=== PATIENT | male | born 1990 | race Caucasian/White ===

== ENCOUNTER 2017-03-07 07:19 | Emergency (ER) | payer BC ==
[~2017-03-07] VITALS: Ht 172.7 cm; Wt 72.9 kg
[~2017-03-07 07:19] MED LIST: COMBAER INH; LEVA750T PO; LORT5TAB PO
[2017-03-07 07:22] VITALS: BP 104/69; PULSE 69; RESP 16; TEMP 97.6; O2SAT 97
--- NOTE | 2017-03-07 07:31 | PD ---
HPI Chief Complaint: Injury Time Seen by Provider: 07:26 Travel History International Travel<30 days: No Contact w/Intl Traveler<30days: No Traveled to known affect area: No History of Present Illness HPI This is a 26-year-old male who presents to the emergency department having injured his left ankle. He was playing basketball last evening when he inverted his left ankle. Ever since then he's had moderate severity pain in his left ankle, constant, associated with some swelling but no numbness or weakness. He denies any other injuries. PFSH Past Medical History Arthritis: No Asthma: No Autoimmune Disease: No Heart Rhythm Problems: No Cancer: No Cardiovascular Problems: No High Cholesterol: No Chemotherapy: No Chest Pain: No Congestive Heart Failure: No COPD: No Cerebrovascular Accident: No Cystic Fibrosis: No Diabetes: No Diminished Hearing: No Endocrine: No GERD: No Genitourinary: No Hiatal Hernia: No Immune Disorder: No Kidney Stones: No Musculoskeletal: No Neurologic: No Psychiatric: No Respiratory: No Migraines: No Radiation Therapy: No Renal Failure: No Seizures: No Sickle Cell Disease: No Sleep Apnea: No Thyroid Disease: No Ulcer: No Past Surgical History AICD: No Arteriovenous Shunt: No Ear Surgery: No Endocrine Surgery: No Eye Surgery: No Insulin Pump: No Joint Replacement: No Oral Surgery: No Pacemaker: No Social History Alcohol Use: Yes (OCCAS. BEER) Tobacco Use: No Substance Use: No Allergies-Medications (Allergen,Severity, Reaction): Coded Allergies: No Known Allergies (Verified , 03/07/17) Reported Meds & Prescriptions Reported Meds & Active Scripts Active No Active Prescriptions or Reported Medications Review of Systems Except as stated in HPI: all other systems reviewed are Neg Physical Exam Narrative GENERAL:Well appearing, no acute distress SKIN: Focused skin assessment warm and dry. HEAD: Atraumatic. Normocephalic. EYES: Pupils equal and round. No injection or drainage. ENT: Moist mucous membranes NECK: Trachea midline. CARDIOVASCULAR: Regular rate and rhythm. No murmur appreciated. 2+ DP pulse with normal capillary refill in the left foot. RESPIRATORY: Clear to auscultation. Breath sounds equal bilaterally. GASTROINTESTINAL: Abdomen soft, non-tender, nondistended. MUSCULOSKELETAL: Tender to palpation over the posterior lateral malleolus of the left ankle with swelling over the anterior and lateral aspect of the ankle. No focal tenderness in the foot. NEUROLOGICAL: Awake and alert. No obvious cranial nerve deficits. Moving all extremities. PSYCHIATRIC: Appropriate mood and affect; insight and judgment normal. Data Data Last Documented VS Vital Signs Date Time Temp Pulse Resp B/P Pulse Ox O2 Delivery O2 Flow Rate FiO2 03/07/17 07:22 97.6 69 16 104/69 97 Orders Ankle, Complete ([id number]) (03/07/17 ) [facility] Medical Decision Making Medical Screen Exam Complete: Yes Emergency Medical Condition: Yes Interpretation(s) Afebrile, no tachycardia, normotensive Left ankle: No acute fracture Differential Diagnosis Medial malleolus fracture, lateral malleolus fracture, ankle sprain Narrative Course This is a 26-year-old male who presents to the emergency department having injured his left ankle. He has swelling on exam with a normal neurovascular exam. He has no evidence of acute fracture on x-ray. He was advised to rest, ice, compress and elevate the ankle. He was given orthopedic referral as needed. Diagnosis Primary Impression: Left ankle sprain Qualified Code: S93.402A - Sprain of left ankle, unspecified ligament, initial encounter Referrals: Luis Romeo MD as needed Patient Instructions: General Instructions Departure Forms: Tests/Procedures, Work Release Special Instructions: Please place Mr. Abdullahi on light duty until Monday when he can resume full work Additional Instructions: If you develop severe pain in the foot or ankle, numbness, weakness, or coolness of your foot return to the emergency department immediately. - Use crutches as needed and rest your ankle until your pain improves. - Apply ice to your ankle for 20 minutes every 3 hours for the first 2 days. - Use an nicole wrap to minimize swelling. - Keep your ankle elevated when you are resting. - Use ibuprofen as needed for pain. - Gradually start exercises with your ankle, moving it upward, downward and in small circles. Perform 20 clockwise and 20 counterclockwise circles twice daily. Med/Other Pt SpecificInfo: Prescription(s) given Scripts No Active Prescriptions or Reported Meds Disposition: DISCHARGE HOME Condition: Stable Karyn Dolan MD March 07, 2017 07:31
--- NOTE | 2017-03-07 08:12 | RADHPO ---
EXAM DATE/TIME: 03/07/2017 07:53 [facility] COMPARISON: No previous studies available for comparison. INDICATIONS : Left lateral ankle pain and swelling, twisted ankle last night playing basketball. MEDICAL HISTORY : None. SURGICAL HISTORY : None. ENCOUNTER: Initial ACUITY: 2 days PAIN SCORE: 8/10 LOCATION: Left lateral ankle FINDINGS: Three view exam was performed of the left ankle. The bony structures are in normal alignment. No ev idence of fracture, dislocation. There is soft tissue swelling. The ankle mortise is intact. No rad iopaque foreign bodies are seen. Bony mineralization is normal. CONCLUSION: No acute fracture. Asa Fregoso MD on March 07, 2017 at 8:09 Board Certified Radiologist. This report was verified electronically.
== END 2017-03-07 08:57 | disposition home or self-care (01) ==
LOC: PHED 07:19
DX: S93.402A Sprain of unspecified ligament of left ankle, initial encounter (principal); X50.1XXA Overexertion from prolonged static or awkward postures, initial encounter; Y93.67 Activity, basketball
CPT/HCPCS: 73610; 99283; E0113

== ENCOUNTER 2017-09-16 13:05 | Emergency (ER) | payer BC ==
[2017-09-16 13:12] VITALS: BP 129/76; PULSE 74; RESP 20; TEMP 98.1; O2SAT 98
[2017-09-16] MEDS ORDERED: SODIUM CHLORIDE 0.9% FLUSH 10 ML FLUSH IV FLUSH PRN (13:30)
--- NOTE | 2017-09-16 13:34 | PD ---
HPI Chief Complaint: Abdominal Pain Time Seen by Provider: 13:21 Travel History International Travel<30 days: No Contact w/Intl Traveler<30days: No Traveled to known affect area: No History of Present Illness HPI patient is a 27-year-old otherwise healthy male presents emergency Department with right lower quadrant abdominal pain radiating down to his testicles. Patient states been going on for about a week and thinks that he might just have a groin pull is worried about having a hernia or something more severe. The only thing he can think of that might about this pain on his 6 months ago he was lifting something heavy when he felt the same pain come on. He states it resolved very quickly and never came back. Denies any dysuria or hematuria endorses some mild nausea without vomiting no changes in stool habits. He states his symptoms are moderate to severe, location as above, radiation as above, context as above. PFSH Past Medical History Arthritis: No Asthma: No Autoimmune Disease: No Heart Rhythm Problems: No Cancer: No Cardiovascular Problems: No High Cholesterol: No Chemotherapy: No Chest Pain: No Congestive Heart Failure: No COPD: No Cerebrovascular Accident: No Cystic Fibrosis: No Diabetes: No Diminished Hearing: No Endocrine: No Gastrointestinal Disorders: No GERD: No Genitourinary: No Headaches: No Hiatal Hernia: No Heparin Induced Thrombocytopen: No Hypertension: No Immune Disorder: No Implanted Vascular Access Dvce: No Kidney Stones: No Musculoskeletal: No Neurologic: No Psychiatric: No Respiratory: No Migraines: No Radiation Therapy: No Renal Failure: No Seizures: No Sickle Cell Disease: No Sleep Apnea: No Thyroid Disease: No Ulcer: No Past Surgical History AICD: No Arteriovenous Shunt: No Ear Surgery: No Endocrine Surgery: No Eye Surgery: No Insulin Pump: No Joint Replacement: No Oral Surgery: No Pacemaker: No Other Surgery: No Social History Alcohol Use: Yes (OCCAS. BEER) Tobacco Use: No Substance Use: No Allergies-Medications (Allergen,Severity, Reaction): Coded Allergies: No Known Allergies (Verified Adverse Reaction, Unknown, 09/16/17) Reported Meds & Prescriptions Reported Meds & Active Scripts Active No Active Prescriptions or Reported Medications Review of Systems Except as stated in HPI: all other systems reviewed are Neg Physical Exam Narrative GENERAL: Well-developed well-nourished no obvious distress SKIN: Focused skin assessment warm/dry. HEAD: Atraumatic. Normocephalic. EYES: Pupils equal and round. No scleral icterus. No injection or drainage. ENT: No nasal bleeding or discharge. Mucous membranes pink and moist. NECK: Trachea midline. No JVD. CARDIOVASCULAR: Regular rate and rhythm. No murmur appreciated. RESPIRATORY: No accessory muscle use. Clear to auscultation. Breath sounds equal bilaterally. GASTROINTESTINAL: Abdomen soft, minimally tender in the right lower quadrant, nondistended. Hepatic and splenic margins not palpable. GENITOURINARY: Grossly normal external genitalia, circumcised, there is some minimal tenderness of the right testes, no masses no lesions. Perhaps a small inguinal hernia felt on the right. None on the left. MUSCULOSKELETAL: No obvious deformities. No clubbing. No cyanosis. No edema. NEUROLOGICAL: Awake and alert. No obvious cranial nerve deficits. Motor grossly within normal limits. Normal speech. PSYCHIATRIC: Appropriate mood and affect; insight and judgment normal. Data Data Last Documented VS Vital Signs Date Time Temp Pulse Resp B/P (MAP) Pulse Ox O2 Delivery O2 Flow Rate FiO2 09/16/17 13:12 98.1 74 20 129/76 (93) 98 Orders Orders Basic Metabolic Panel (Bmp) (09/16/17 13:30) Complete Blood Count With Diff (09/16/17 13:30) Urinalysis - C+S If Indicated (09/16/17 13:30) Iv Access Insert/Monitor (09/16/17 13:30) Ecg Monitoring (09/16/17 13:30) Oximetry (09/16/17 13:30) Sodium Chloride 0.9% Flush (Ns Flush) (09/16/17 13:30) Us Testicles W Doppler (09/16/17 13:30) Ed Discharge Order (09/16/17 14:31) Labs Laboratory Tests Test 09/16/17 13:48 White Blood Count 6.9 TH/MM3 Red Blood Count 5.24 MIL/MM3 Hemoglobin 16.4 GM/DL Hematocrit 47.6 % Mean Corpuscular Volume 90.8 FL Mean Corpuscular Hemoglobin 31.4 PG Mean Corpuscular Hemoglobin Concent 34.5 % Red Cell Distribution Width 12.5 % Platelet Count 199 TH/MM3 Mean Platelet Volume 8.3 FL Neutrophils (%) (Auto) 54.4 % Lymphocytes (%) (Auto) 35.0 % Monocytes (%) (Auto) 5.0 % Eosinophils (%) (Auto) 3.2 % Basophils (%) (Auto) 2.4 % Neutrophils # (Auto) 3.8 TH/MM3 Lymphocytes # (Auto) 2.4 TH/MM3 Monocytes # (Auto) 0.3 TH/MM3 Eosinophils # (Auto) 0.2 TH/MM3 Basophils # (Auto) 0.2 TH/MM3 CBC Comment DIFF FINAL Differential Comment Urine Collection Type VOIDED Urine Color STRAW Urine Turbidity CLEAR Urine pH 7.5 Urine Specific [place] 1.012 Urine Protein NEG mg/dL Urine Glucose (UA) NEG mg/dL Urine Ketones NEG mg/dL Urine Occult Blood NEG Urine Nitrite NEG Urine Bilirubin NEG Urine Leukocyte Esterase NEG Urine Squamous Epithelial Cells 0-2 /hpf Microscopic Urinalysis Comment CULT NOT INDICATED Blood Urea Nitrogen 15 MG/DL Creatinine 0.98 MG/DL Random Glucose 108 MG/DL Calcium Level 9.0 MG/DL Sodium Level 140 MEQ/L Potassium Level 4.2 MEQ/L Chloride Level 107 MEQ/L Carbon Dioxide Level 25.6 MEQ/L Anion Gap 7 MEQ/L Estimat Glomerular Filtration Rate 90 ML/MIN [facility] Medical Decision Making Medical Screen Exam Complete: Yes Emergency Medical Condition: Yes Differential Diagnosis Hernia, testicular pain, appendicitis is unlikely, torsion unlikely, epididymitis. Narrative Course Patient roomed emergency department, appears quite comfortable in no distress, exam is fairly benign. Ultrasound of the testes is negative, basic labs negative. Discussed with him that he could consider following up with a primary care physician when he states he doesn't have one and I suggested that he could have a CAT scan here to look for any significant pathology, he is declining this offer at this time. This would be done on a nonemergent basis anyways. Discussed with him symptomatic management returned ED criteria. He will follow-up the primary care physician. Stable for discharge.He was offered pain medicine and declined Diagnosis Primary Impression: Right groin pain Additional Impression: Hernia, inguinal, right Referrals: Narendra Mitchell MD [facility] No Active Prescriptions or Reported Meds Disposition: 01 DISCHARGE HOME Condition: Stable Salbador Delgadillo MD Sep 16, 2017 13:34
[2017-09-16 13:57] LABS: AUTOMATED NEUTROPHIL # 3.8 TH/MM3 (1.8-7.7); BASOPHIL # 0.2 TH/MM3 (0-0.2); BASOPHIL % 2.4 % (0.0-2.0); EOSINOPHIL # 0.2 TH/MM3 (0-0.4); EOSINOPHIL % 3.2 % (0.0-4.0); HEMATOCRIT 47.6 % (39.0-51.0); HEMO FLAGS DIFF FINAL; LYMPHOCYTE # 2.4 TH/MM3 (1.0-4.8); MEAN CELL VOLUME 90.8 FL (80.0-100.0); MEAN CORPUSCULAR HEMOGLOBIN 31.4 PG (27.0-34.0); MEAN CORPUSCULAR HGB CONC 34.5 % (32.0-36.0); NEUT % 54.4 % (16.0-70.0); PLATELET COUNT 199 TH/MM3 (150-450); RED BLOOD COUNT 5.24 MIL/MM3 (4.50-5.90); RED CELL DISTRIBUTION WIDTH 12.5 % (11.6-17.2); WHITE BLOOD COUNT 6.9 TH/MM3 (4.0-11.0)
[2017-09-16 13:58] LABS: BLOOD, URINE NEG (NEG); GLUCOSE,URINE NEG (NEG); KETONE, URINE NEG (NEG); NITRITE,URINE NEG (NEG); PH, URINE 7.5 (5.0-8.5)
[2017-09-16 14:16] LABS: BICARBONATE 25.6 MEQ/L (21.0-32.0)
[2017-09-16 14:19] LABS: METHOD OF COLLECTION VOIDED; POTASSIUM 4.2 MEQ/L (3.5-5.1); URINE COLOR STRAW (YELLW/STRAW)
[2017-09-16 14:20] LABS: COMMENT (UR) CULT NOT INDICATED; CULTURE IF INDICATED CULT NOT INDICATED; SQUAMOUS EPITHELIAL CELL URINE 0-2 /hpf (0-5)
--- NOTE | 2017-09-16 14:24 | RADRPT ---
EXAM DATE/TIME: 09/16/2017 13:44 [facility] COMPARISON: No previous studies available for comparison. INDICATIONS : Testicular pain. MEDICAL HISTORY : Dyspnea. Alcohol use. Broken tooth. SURGICAL HISTORY : None. ENCOUNTER: Initial ACUITY: 1 week PAIN SCORE: 3/10 LOCATION: Bilateral testicles. MEASUREMENTS: RIGHT TESTICLE: 4.7 x 2.9 x 2.5cm LEFT TESTICLE: 4.7 x 2.4 x 2.1cm FINDINGS: RIGHT TESTICLE: Homogeneous echotexture without intra or extratesticular mass. Blood flow is symmetric and within no rmal limits. Small hydrocele. No varicocele. Epididymis is within normal limits. LEFT TESTICLE: Homogeneous echotexture without intra or extratesticular mass. Blood flow is symmetric and within no rmal limits. Small hydrocele. No varicocele. Epididymis is within normal limits. SCROTUM: Within normal limits. CONCLUSION: 1. Small bilateral hydroceles. Otherwise, unremarkable ultrasound examination of the testicles. Specifically, no focal testicular ab normality with intact symmetrical bilateral testicular blood flow. Dereck Cat MD on September 16, 2017 at 14:21 Board Certified Radiologist. This report was verified electronically.
== END 2017-09-16 14:44 | disposition home or self-care (01) ==
LOC: PHED 13:05
DX: K40.90 Unilateral inguinal hernia, without obstruction or gangrene, not specified as recurrent (principal)
CPT/HCPCS: 76870; 80048; 81001; 85025; 93975

== ENCOUNTER 2018-02-27 22:16 | Emergency (ER) | payer SELFPAY ==
[~2018-02-27] VITALS: Ht 172.7 cm; Wt 77.2 kg
[2018-02-27] MEDS ORDERED: IBUP-232 PO (22:22)
[2018-02-27] MEDS ORDERED: CEPH-460 PO (22:22)
[2018-02-27 22:23] VITALS: BP 141/75; PULSE 100; RESP 16; TEMP 99; O2SAT 97
[2018-02-27] MEDS ORDERED: SODIUM CHLOR 0.9% 1000 ML INJ 1,000 ML IV ONE ×2 (23:00)
--- NOTE | 2018-02-27 23:21 | PD ---
HPI Chief Complaint: Headache Time Seen by Provider: 23:00 Travel History International Travel<30 days: No Contact w/Intl Traveler<30days: No Traveled to known affect area: No History of Present Illness HPI 27-year-old male presents to the emergency department by private transportation for complaint of right groin pain since Monday. Patient states onset of right groin pain occurred while at work undergoing heavy lifting. Patient was sent to urgent care for possible work-related hernia. At urgent care patient was diagnosed with infected lymph node of the right groin. Patient was placed on Keflex. Patient states that the right groin mass has not diminished in size and subsequently on Monday developed headache and on Monday was noted to have fever. Patient states he took a one-time dose of ibuprofen on Monday morning for fever and then this evening had temperature elevation of 101F so took a shower and came to the emergency room for evaluation. Patient denies any sudden onset thunderclap headache patient does state headache is severe at 8/10 intensity but is intermittent and primarily with ambulation. Patient rates groin pain 6-8/10 in intensity. Patient's had no dysuria frequency urgency or discharge. Patient denies any earache sore throat neck pain or stiffness. No cough congestion no nausea no vomiting. No report of anorexia. No flank pain. Patient denies diarrhea. [facility] Past Medical History Narrative Medical Negative past medical history negative surgical history; nursing notes reviewed Arthritis: No Asthma: No Autoimmune Disease: No Heart Rhythm Problems: No Cancer: No Cardiovascular Problems: No High Cholesterol: No Chemotherapy: No Chest Pain: No Congestive Heart Failure: No COPD: No Cerebrovascular Accident: No Cystic Fibrosis: No Diabetes: No Diminished Hearing: No Endocrine: No Gastrointestinal Disorders: No GERD: No Genitourinary: No Headaches: No Hiatal Hernia: No Heparin Induced Thrombocytopen: No Hypertension: No Immune Disorder: No Implanted Vascular Access Dvce: No Kidney Stones: No Musculoskeletal: No Neurologic: No Psychiatric: No Respiratory: No Immunizations Current: Yes Migraines: No Radiation Therapy: No Renal Failure: No Seizures: No Sickle Cell Disease: No Sleep Apnea: No Thyroid Disease: No Ulcer: No Tetanus Vaccination: Unknown Past Surgical History AICD: No Arteriovenous Shunt: No Ear Surgery: No Endocrine Surgery: No Eye Surgery: No Insulin Pump: No Joint Replacement: No Oral Surgery: No Pacemaker: No Other Surgery: No Social History Alcohol Use: Yes (OCCAS. BEER) Tobacco Use: No Substance Use: No Allergies-Medications (Allergen,Severity, Reaction): Coded Allergies: No Known Allergies (Verified Adverse Reaction, Unknown, 02/27/18) Reported Meds & Prescriptions Reported Meds & Active Scripts Active Clindamycin (Clindamycin HCl) 150 Mg Cap 300 Mg PO Q6H 7 Days Reported Ibuprofen 600 Mg Tab 600 Mg PO Q6H PRN Keflex (Cephalexin) 500 Mg Capsule 500 Mg PO Q8H Review of Systems Except as stated in HPI: all other systems reviewed are Neg General / Constitutional: Positive: Fever, No: Chills HENT: Positive: Headaches, No: Sore Throat, Congestion, Neck Stiffness, Neck Pain, Earache Cardiovascular: No: Chest Pain or Discomfort Respiratory: No: Cough, Shortness of Breath Gastrointestinal: Positive: Abdominal Pain (RLQ right groin), No: Nausea, Vomiting, Loss of Appetite Genitourinary: No: Dysuria, Flank Pain, Discharge Musculoskeletal: No: Myalgias, Arthralgias Skin: No Rash Neurologic: Positive: Headache, No: Weakness, Dizziness, Syncope, Focal Abnormalities, Coordination Problem, Change in Mentation Psychiatric: No: Anxiety Hematologic/Lymphatic: Positive: Lymph Node Enlargement (right groin) Physical Exam Narrative GENERAL: Well-developed well-nourished male no acute distress no respiratory distress SKIN: Warm and dry. HEAD: Normocephalic. EYES: No scleral icterus. No injection or drainage. NECK: Supple, trachea midline. No JVD or lymphadenopathy. No meningismus no nuchal rigidity negative Brudzinski and Kernig's CARDIOVASCULAR: Regular rate and rhythm without murmurs, gallops, or rubs. RESPIRATORY: Breath sounds equal bilaterally. No accessory muscle use. GASTROINTESTINAL: Abdomen soft, tender right lower abdomen/groin with palpable right groin lymphadenopathy focal mild erythema no inguinal hernia or mass, nondistended. MUSCULOSKELETAL: No cyanosis, or edema. BACK: Nontender without obvious deformity. No CVA tenderness. Data Data Last Documented VS Vital Signs Date Time Temp Pulse Resp B/P (MAP) Pulse Ox O2 Delivery O2 Flow Rate FiO2 02/28/18 03:27 98.0 70 20 106/56 (73) 97 02/28/18 01:58 Room Air Orders Orders Sepsis Workup Initiated (5/15/18 ) Complete Blood Count With Diff (02/27/18 23:00) Comprehensive Metabolic Panel (02/27/18 23:00) Lactic Acid Sepsis Protocol (02/27/18 23:00) Urinalysis - C+S If Indicated (02/27/18 23:00) Influenzae A/B Antigen (02/27/18 23:00) Blood Culture (02/27/18 23:00) Chest, Single Ap (02/27/18 23:00) Blood Glucose (02/27/18 23:00) Ecg Monitoring (02/27/18 23:00) Iv Access Insert/Monitor (02/27/18 23:00) Oximetry (02/27/18 23:00) Oxygen Administration (02/27/18 23:00) Sodium Chlor 0.9% 1000 Ml Inj (Ns 1000 M (02/27/18 23:00) Sodium Chlor 0.9% 1000 Ml Inj (Ns 1000 M (02/27/18 23:00) Ketorolac Inj (Toradol Inj) (02/27/18 23:30) Acetaminophen (Tylenol) (02/27/18 23:30) Sodium Chlor 0.9% 1000 Ml Inj (Ns 1000 M (02/28/18 01:15) Prochlorperazine Inj (Compazine Inj) (02/28/18 01:15) Diphenhydramine Inj (Benadryl Inj) (02/28/18 01:15) Ct Brain W/O Iv Contrast(Rout) (02/28/18 ) Ct Abd/Pel W Iv Contrast(Rout) (02/28/18 ) Iohexol 350 Inj (Omnipaque 350 Inj) (02/28/18 03:01) Clindamycin (Cleocin) (02/28/18 04:15) Ed Discharge Order (02/28/18 04:06) Labs Laboratory Tests Test 02/27/18 23:11 02/28/18 00:50 White Blood Count 9.6 TH/MM3 Red Blood Count 4.88 MIL/MM3 Hemoglobin 14.8 GM/DL Hematocrit 44.3 % Mean Corpuscular Volume 90.9 FL Mean Corpuscular Hemoglobin 30.2 PG Mean Corpuscular Hemoglobin Concent 33.3 % Red Cell Distribution Width 11.5 % Platelet Count 227 TH/MM3 Mean Platelet Volume 7.9 FL Neutrophils (%) (Auto) 67.7 % Lymphocytes (%) (Auto) 24.0 % Monocytes (%) (Auto) 5.3 % Eosinophils (%) (Auto) 2.6 % Basophils (%) (Auto) 0.4 % Neutrophils # (Auto) 6.6 TH/MM3 Lymphocytes # (Auto) 2.3 TH/MM3 Monocytes # (Auto) 0.5 TH/MM3 Eosinophils # (Auto) 0.2 TH/MM3 Basophils # (Auto) 0.0 TH/MM3 CBC Comment DIFF FINAL Differential Comment Blood Urea Nitrogen 14 MG/DL Creatinine 1.30 MG/DL Random Glucose 127 MG/DL Total Protein 7.2 GM/DL Albumin 3.8 GM/DL Calcium Level 8.6 MG/DL Alkaline Phosphatase 74 U/L Aspartate Amino Transf (AST/SGOT) 13 U/L Alanine Aminotransferase (ALT/SGPT) 19 U/L Total Bilirubin 0.4 MG/DL Sodium Level 140 MEQ/L Potassium Level 3.3 MEQ/L Chloride Level 107 MEQ/L Carbon Dioxide Level 25.2 MEQ/L Anion Gap 8 MEQ/L Estimat Glomerular Filtration Rate 65 ML/MIN Lactic Acid Level 1.5 mmol/L Urine Color YELLOW Urine Turbidity CLEAR Urine pH 6.0 Urine Specific [place] 1.010 Urine Protein NEG mg/dL Urine Glucose (UA) NEG mg/dL Urine Ketones NEG mg/dL Urine Occult Blood NEG Urine Nitrite NEG Urine Bilirubin NEG Urine Urobilinogen 0.2 MG/DL Urine Leukocyte Esterase NEG Urine Squamous Epithelial Cells 0-5 /hpf Microscopic Urinalysis Comment CULT NOT INDICATED MDM Medical Decision Making Medical Screen Exam Complete: Yes Emergency Medical Condition: Yes Medical Record Reviewed: Yes Interpretation(s) CBC & BMP Diagram 02/27/18 23:11 Total Protein 7.2, Albumin 3.8, Calcium Level 8.6, Alkaline Phosphatase 74, Aspartate Amino Transf (AST/SGOT) 13 L, Alanine Aminotransferase (ALT/SGPT) 19, Total Bilirubin 0.4 Vital Signs Date Time Temp Pulse Resp B/P (MAP) Pulse Ox O2 Delivery O2 Flow Rate FiO2 02/28/18 02:00 68 20 100/50 (67) 98 02/28/18 01:58 98.1 86 20 100/50 (67) 96 Room Air 02/28/18 01:58 96 Room Air 02/27/18 22:39 20 02/27/18 22:23 99.0 100 16 141/75 (97) 97 ua: wnl influenza ag:negative Last Impressions Head CT 02/28/18 0000 Signed Impressions: Service Date/Time: Wednesday, February 28, 2018 01:59 - CONCLUSION: Normal examination. Oscar Grigsby Jr., MD Abdomen/Pelvis CT 02/28/18 0000 Signed Impressions: Service Date/Time: Wednesday, February 28, 2018 02:52 - CONCLUSION: Normal examination. Oscar Grigsby Jr., MD Chest X-Ray 02/27/18 2300 Signed Impressions: Service Date/Time: Tuesday, February 27, 2018 23:47 - CONCLUSION: No acute disease. Oscar Grigsby Jr., MD Differential Diagnosis Groin pain, infected lymph node, abscess, epididymitis, uti, viral syndrome, sinusitis; also to consider sepsis, meningitis Narrative Course At 2:30 AM patient reports symptoms markedly improved able to ambulate without any headache at this time and headache is only been intermittent over the past 5 days but continues to complain of 6/10 lower abdominal pain and groin pain; no obvious hernia on exam patient does have non-fixed tender right groin lymph nodes/lymphadenopathy; CBC is automated differential is normal lactic acid is not elevated and urinalysis reveals no white cells or bacteria however patient reports increasing right lower quadrant pain as well will proceed with CT abdomen and pelvis with IV contrast. Imaging study CT brain noncontrast is negative for acute process/findings. Imaging study resulted CT shows some prominence of lymph nodes to the right groin no abscess. Patient states feels markedly improved desirous of being discharged to home is aware of plan to add antibiotic coverage for infected lymph node/focal cellulitis. Patient remains afebrile in the emergency department and stable for outpatient management. Patient is well hydrated. Patient be discharged with outpatient follow-up through his clinic or through the emergency department in 1-2 days or sooner should he have any recurrent symptoms. Diagnosis Primary Impression: Right groin mass Additional Impression: Cellulitis Referrals: Primary Care Physician 2 days Patient Instructions: General Instructions Departure Forms: Tests/Procedures, Work Release Special Instructions: no work x 2 days Med/Other Pt SpecificInfo: Prescription(s) given Scripts Clindamycin (Clindamycin) 150 Mg Cap 300 MG PO Q6H for Infection for 7 Days, #56 CAP 0 Refills Prov: Jojo Mercado MD 02/28/18 Disposition: 01 DISCHARGE HOME Condition: Stable Jojo Mercado MD February 27, 2018 23:21
[2018-02-27 23:27] LABS: AUTOMATED NEUTROPHIL # 6.6 TH/MM3 (1.8-7.7); BASOPHIL % 0.4 % (0.0-2.0); EOSINOPHIL # 0.2 TH/MM3 (0-0.4); EOSINOPHIL % 2.6 % (0.0-4.0); HEMATOCRIT 44.3 % (39.0-51.0); HEMOGLOBIN 14.8 GM/DL (13.0-17.0); LYMPHOCYTE # 2.3 TH/MM3 (1.0-4.8); MEAN CELL VOLUME 90.9 FL (80.0-100.0); MEAN CORPUSCULAR HEMOGLOBIN 30.2 PG (27.0-34.0); MEAN CORPUSCULAR HGB CONC 33.3 % (32.0-36.0); MEAN PLATELET VOLUME 7.9 FL (7.0-11.0); MONO % 5.3 % (0.0-8.0); MONOCYTE # 0.5 TH/MM3 (0-0.9); NEUT % 67.7 % (16.0-70.0); PLATELET COUNT 227 TH/MM3 (150-450); RED BLOOD COUNT 4.88 MIL/MM3 (4.50-5.90); RED CELL DISTRIBUTION WIDTH 11.5 % (11.6-17.2); WHITE BLOOD COUNT 9.6 TH/MM3 (4.0-11.0)
[2018-02-27] MEDS ORDERED: ACETAMINOPHEN 325 MG TAB PO ONE (23:30)
[2018-02-27] MEDS ORDERED: KETOROLAC TROMETHAMINE 30 MG/ML (IVP) VIAL IV PUSH ONE (23:30)
[2018-02-27 23:40] LABS: CHLORIDE 107 MEQ/L (98-107); SODIUM (NA) 140 MEQ/L (136-145)
[2018-02-27 23:43] LABS: ALBUMIN 3.8 GM/DL (3.4-5.0); BICARBONATE 25.2 MEQ/L (21.0-32.0); BLOOD UREA NITROGEN 14 MG/DL (7-18); CALCIUM 8.6 MG/DL (8.5-10.1); GLUCOSE,RANDOM 127 MG/DL (74-106)
[2018-02-27 23:46] LABS: ALT (GPT) 19 U/L (12-78); AST (GOT) 13 U/L (15-37); GLOMERULAR FILTRATION RATE 65 ML/MIN (>89)
[2018-02-27 23:48] LABS: TOTAL BILIRUBIN ADULT 0.4 MG/DL (0.2-1.0); TOTAL PROTEIN 7.2 GM/DL (6.4-8.2)
[2018-02-27 23:49] LABS: ALKALINE PHOSPHATASE 74 U/L (45-117)
--- NOTE | 2018-02-28 00:29 | RADRPT ---
EXAM DATE/TIME: 02/27/2018 23:47 [facility] COMPARISON: No previous studies available for comparison. INDICATIONS : Fever. MEDICAL HISTORY : None. SURGICAL HISTORY : None. ENCOUNTER: Initial ACUITY: 1 day PAIN SCORE: 0/10 LOCATION: Bilateral chest FINDINGS: A single view of the chest demonstrates the lungs to be symmetrically aerated without evidence of mas s, infiltrate or effusion. The cardiomediastinal contours are unremarkable. Osseous structures are intact. CONCLUSION: No acute disease. Oscar Grigsby Jr., MD on February 28, 2018 at 0:27 Board Certified Radiologist. This report was verified electronically.
[2018-02-28 01:07] LABS: BILIRUBIN, URINE NEG (NEG); BLOOD, URINE NEG (NEG); GLUCOSE,URINE NEG (NEG); KETONE, URINE NEG (NEG); NITRITE,URINE NEG (NEG); URINE COLOR YELLOW (YELLW/STRAW); URINE LEUKOCYTE ESTERASE NEG (NEG)
[2018-02-28] MEDS ORDERED: diphenhydrAMINE HCL 50 MG/ML VIAL IV PUSH ONE (01:15)
[2018-02-28] MEDS ORDERED: SODIUM CHLOR 0.9% 1000 ML INJ 1,000 ML IV ONE (01:15)
[2018-02-28] MEDS ORDERED: PROCHLORPERAZINE INJ 10 MG/2 ML VIAL IV PUSH ONE (01:15)
[2018-02-28 01:20] LABS: SQUAMOUS EPITHELIAL CELL URINE 0-5 /hpf (0-5)
[2018-02-28 01:30] VITALS: BP 138/60; PULSE 82; RESP 20; O2SAT 97
[2018-02-28 01:58] VITALS: BP 100/50; PULSE 86; RESP 20; TEMP 98.1; O2SAT 96
[2018-02-28 02:00] VITALS: BP 100/50; PULSE 68; RESP 20; O2SAT 98
--- NOTE | 2018-02-28 02:22 | RADRPT ---
EXAM DATE/TIME: 02/28/2018 01:59 [facility] COMPARISON: No previous studies available for comparison. INDICATIONS : Cephalgia. Light sensitivity. RADIATION DOSE: 59.50 CTDIvol (mGy) MEDICAL HISTORY : None SURGICAL HISTORY : None. ENCOUNTER: Initial ACUITY: 1 day PAIN SCALE: 8/10 LOCATION: Bilateral cranial TECHNIQUE: Multiple contiguous axial images were obtained of the head. Using automated exposure control and adj ustment of the mA and/or kV according to patient size, radiation dose was kept as low as reasonably a chievable to obtain optimal diagnostic quality images. DICOM format image data is available electro nically for review and comparison. FINDINGS: CEREBRUM: The ventricles are normal for age. No evidence of midline shift, mass lesion, hemorrhage or acute in farction. No extra-axial fluid collections are seen. POSTERIOR FOSSA: The cerebellum and brainstem are intact. The 4th ventricle is midline. The cerebellopontine angle i s unremarkable. EXTRACRANIAL: The visualized portion of the orbits is intact. SKULL: The calvaria is intact. No evidence of skull fracture. CONCLUSION: Normal examination. Oscar Grigsby Jr., MD on February 28, 2018 at 2:19 Board Certified Radiologist. This report was verified electronically.
[2018-02-28] MEDS ORDERED: IOHEXOL 350 MG/ML 10 ML VIAL (for RAD DIAG) IVCONTRAST ONE (03:01)
[2018-02-28 03:27] VITALS: BP 106/56; PULSE 70; RESP 20; TEMP 98; O2SAT 97
--- NOTE | 2018-02-28 03:28 | RADRPT ---
EXAM DATE/TIME: 02/28/2018 02:52 This report includes an Addendum and supersedes previous reports for this exam. [facility] COMPARISON: No previous studies available for comparison. INDICATIONS : Right lower quadrant pain. IV CONTRAST: 100 cc Omnipaque 350 (iohexol) IV ORAL CONTRAST: No oral contrast ingested. RADIATION DOSE: 7.87 CTDIvol (mGy) MEDICAL HISTORY : None SURGICAL HISTORY : None. ENCOUNTER: Initial ACUITY: 3 days PAIN SCALE: 8/10 LOCATION: Right lower quadrant TECHNIQUE: Volumetric scanning of the abdomen and pelvis was performed. Using automated exposure control and ad justment of the mA and/or kV according to patient size, radiation dose was kept as low as reasonably achievable to obtain optimal diagnostic quality images. DICOM format image data is available electro nically for review and comparison. FINDINGS: LOWER LUNGS: The visualized lower lungs are clear. LIVER: Homogeneous density without lesion. There is no dilation of the biliary tree. No calcified gallston es. SPLEEN: Normal size without lesion. PANCREAS: Within normal limits. KIDNEYS: Normal in size and shape. 1.2 cm left upper pole renal cyst. There is no mass, stone or hydronephrosi s. ADRENAL GLANDS: Within normal limits. VASCULAR: There is no aortic aneurysm. BOWEL/MESENTERY: The stomach, small bowel, and colon demonstrate no acute abnormality. There is no free intraperitone al air or fluid. ABDOMINAL WALL: Within normal limits. RETROPERITONEUM: There is no lymphadenopathy. BLADDER: No wall thickening or mass. REPRODUCTIVE: Within normal limits. INGUINAL: There is no lymphadenopathy or hernia. MUSCULOSKELETAL: Within normal limits for patient age. CONCLUSION: Normal examination. Oscar Grigsby Jr., MD on February 28, 2018 at 3:23 Board Certified Radiologist. This report was verified electronically. ADDENDUM: There is a small cluster of mildly enlarged lymph nodes within the right groin. The largest lymph nod e measures 1.7 x 1.2 cm. Oscar Grigsby Jr., MD on February 28, 2018 at 3:59 Board Certified Radiologist. This report was verified electronically.
[2018-02-28] MEDS ORDERED: CLIN150C14 PO (04:02)
[2018-02-28] MEDS ORDERED: CLINDAMYCIN 150 MG CAP PO ONE (04:15)
[2018-02-28 04:31] VITALS: BP 127/55
== END 2018-02-28 05:54 | disposition home or self-care (01) ==
LOC: PHED 22:16
DX: R19.09 Other intra-abdominal and pelvic swelling, mass and lump (principal); L03.314 Cellulitis of groin; R10.31 Right lower quadrant pain; R50.9 Fever, unspecified; R51 Headache
CPT/HCPCS: 70450; 71045; 74177; 80053; 81001; 83605; 85025; 87040; 87804; 96361; 96374; 96375; 99285; J0780; J1200; J1885; J7030; Q9967